=== PATIENT | male | born 1970 | race Hispanic/Latino ===

== ENCOUNTER 2019-12-13 18:21 | Inpatient (IN) | payer OTHER ==
[2019-12-13] MEDS ORDERED: PROMETHAZINE INJ 25 MG/ML AMP ONE (18:32)
[2019-12-13] MEDS ORDERED: NA CHLORIDE 0.9% 1,000 ML ONE (18:33)
[2019-12-13] MEDS ORDERED: MORPHINE 4 MG/ML SYR ONE ×3 (18:33→22:32)
[2019-12-13 18:38] LABS: Absolute Lymphocytes (CBC) 5.5 K/uL (0.7-4.9); Basophils % 0.8 % (0-1.3); Hematocrit 48.3 % (39.6-49.0); Lymphocytes % 31.3 % (15.3-44.8); MPV 7.8 fL (7.6-11.3); RBC Red Blood Cell Count 5.72 M/uL (4.33-5.43)
[2019-12-13 18:39] LABS: Protime INR 1.09
--- NOTE | 2019-12-13 19:07 | RAD REPORT ---
EXAM DESCRIPTION: RAD - Chest Single View - 12/13/2019 6:54 pm CLINICAL HISTORY: abd pain;Chest pain COMPARISON: None TECHNIQUE: AP portable chest image was obtained 12/13/2019 6:54 pm . FINDINGS: Exam is extremely limited. Very large body habitus, portable imaging and very shallow insp iration significantly limit assessment. No focal consolidation confirmed. Central vasculature and malathi g markings do appear prominent. Retrocardiac left base assessment is very limited. The failure/volume overload are not excluded. Heart and vasculature are normal. No measurable pleural effusion and no pneumothorax. No acute bony abnormality seen. No acute aortic findings suspected. IMPRESSION: Exam is extremely limited. No peripheral mass or consolidation confirmed. A mild failure or volume overload process cannot be excluded.
[2019-12-13 19:23] LABS: ALT/SGPT 35 U/L (12-78); AST/SGOT 24 U/L (15-37); Albumin 3.7 g/dL (3.4-5.0); Alkaline Phosphatase 133 U/L (45-117); BUN Blood Urea Nitrogen 18 mg/dL (7-18); Bicarbonate 26 mmol/L (21-32); Bilirubin Direct 0.3 mg/dL (0-0.2); Bilirubin Total 0.9 mg/dL (0.2-1.0); Glucose Level 303 mg/dL (74-106); Magnesium 2.2 mg/dL (1.8-2.4); NT PRO-BNP 112 pg/mL (<125); Protein, Total 8.5 g/dL (6.4-8.2); Sodium Level 137 mmol/L (136-145); Troponin (Emerg Dept Use Only) < 0.02 ng/mL (0.0-0.045)
[2019-12-13 19:27] LABS: Potassium 2.8 mmol/L (3.5-5.1)
--- NOTE | 2019-12-13 20:16 | RAD REPORT ---
EXAM DESCRIPTION: CT - Angio Aorta For Dissection - 12/13/2019 8:05 pm CLINICAL HISTORY: PAIN, abdominal pain, epigastric pain radiating to the back, hypertension COMPARISON: Limited portable chest December 12 TECHNIQUE: Dynamically enhanced 3 mm thick images of the chest, abdomen, and upper pelvis were obtai fredy during administration of approximately 150mL Isovue 370 IV contrast. Sagittal and coronal reconst ruction images were generated using MIP and reviewed. Exam utilizes a protocol to evaluate entire cou rse of the aorta. All CT scans are performed using dose optimization technique as appropriate and may include automated exposure control or mA/KV adjustment according to patient size. FINDINGS: Aorta is normal in diameter with no dissection or other acute aortic findings. Reconstruct ion images show no significant findings. Pulmonary arteries are normal as well. No cardiomegaly, pericardial thickening or pericardial effusio n. No mass or infiltrate in the lung parenchyma. No pleural thickening, pleural effusion or pneumothorax . No abnormal mediastinal or hilar mass or lymphadenopathy seen. No chest wall mass or abnormal axillar y lymphadenopathy. No endobronchial lesion or bronchial wall thickening you have you have been. Celiac, SMA and renal arteries show no suspicious findings. No focal lesion of the liver. No splenic abnormality. No pancreatic or peripancreatic abnormality identifiable. Cholelithiasis is evident. Gallbladder wall appears slightly thickened and enhances slightly. No bili sher tree dilatation. Correlation is needed with any acute cholecystitis findings. There is stranding in the fat adjacent to the fundus of the gallbladder. Small amount of free fluid is adjacent to the a nterolateral liver. Renal function is symmetric. No acute renal finding. No adrenal abnormalities. No acute bowel finding . No mass or abnormal lymphadenopathy. No free air, pneumatosis or other areas of inflammatory stran ding. No urinary bladder abnormality. IMPRESSION: Negative CT scan of the aorta for acute or significant finding. Abnormal gallbladder with findings suggesting acute cholecystitis. Correlation is needed with clinica l presentation. No biliary tree dilatation. No other significant findings on chest, abdomen and upper pelvis examination.
--- NOTE | 2019-12-13 20:53 | ER ---
Nurse's Notes [facility] Name: Yung Camara Age: 49 yrs Sex: Male : 1970 Arrival Date: 12/13/2019 Time: 18:18 Bed 26 Private MD: Diagnosis: Cholecystitis;Hypokalemia Presentation: 12/12 18:19 Chief complaint: EMS states: EPIGASTRIC PAIN RADIATING TO BACK. Coronavirus screen: bp Patient denies fever greater than 100.4F, cough, shortness of breath, or difficulty breathing. Proceed with normal triage process. Ebola Screen: No symptoms or risks identified at this time. Initial Sepsis Screen: Does the patient meet any 2 criteria? No. Patient's initial sepsis screen is negative. Does the patient have a suspected source of infection? No. Patient's initial sepsis screen is negative. Risk Assessment: Do you want to hurt yourself or someone else? Patient reports no desire to harm self or others. 18:19 Method Of Arrival: EMS: [facility] bp 18:19 Acuity: ANNALEE 3 bp Triage Assessment: 18:21 General: Appears distressed, uncomfortable, PALE, DIAPHORETIC. Behavior is cooperative, bp appropriate for age, agitated, anxious. Pain: Complains of pain in epigastric area Pain radiates to back. EENT: No deficits noted. Neuro: No deficits noted. Cardiovascular: Rhythm is sinus rhythm. Respiratory: Airway is patent Respiratory effort is even, unlabored, Respiratory pattern is regular, symmetrical. GI: Abdomen is non-distended, obese, Abd is soft X 4 quads Reports epigastric pain. : No signs and/or symptoms were reported regarding the genitourinary system. Derm: Skin is diaphoretic, Skin is pale. Musculoskeletal: No deficits noted. Historical: - Allergies: 18:21 No Known Allergies; bp - Home Meds: 18:21 Unable to obtain [Active]; bp - PMHx: 18:21 Hypertension; GALLSTONES; bp - Immunization history:: Adult Immunizations unknown. - Social history:: Smoking status: unknown. Screenin:24 Abuse screen: Denies threats or abuse. Denies injuries from another. Nutritional bp screening: No deficits noted. Tuberculosis screening: No symptoms or risk factors identified. Fall Risk None identified. Assessment: 18:24 General: SEE TRIAGE NOTE. bp Vital Signs: 18:19 BP 165 / 78; Pulse 83; Resp 16; Temp 98.1; Pulse Ox 98% ; Weight 136.08 kg; Height 5 bp ft. 10 in. (177.80 cm); 19:32 BP 229 / 122; Pulse 75; Resp 20; Temp 98.2(O); Pulse Ox 99% on R/A; Pain 7/10; ls4 21:11 BP 196 / 94; Pulse 96; Resp 14; Pulse Ox 99% on R/A; Pain 6/10; ls4 22:36 BP 186 / 113; Pulse 103; Resp 20; Temp 98.1(O); Pulse Ox 95% on R/A; Pain 7/10; ls4 23:05 BP 188 / 106; Pulse 116; Resp 20; Temp 100.4(O); Pulse Ox 97% on R/A; Pain 6/10; ls4 18:19 Body Mass Index 43.05 (136.08 kg, 177.80 cm) bp 19:32 Angie Hughes ORACLE FUSION MIDDLEWARE ARCHITECT aware of BP. continue to monitor ls4 23:05 Angie hughes ORACLE FUSION MIDDLEWARE ARCHITECT notified. 1 gram tylenol given po Salome [facility] 2nd floor MS updated, ls4 Leonidas and Angie Hughes aware of blood pressures. ED Course: 18:18 Patient arrived in ED. bp 18:20 Angie Arcos FNP-C is PHCP. snw 18:20 Jayy Amador MD is Attending Physician. snw 18:21 Triage completed. bp 18:21 Arm band placed on. bp 18:24 Patient has correct armband on for positive identification. Placed in gown. Bed in low bp position. Call light in reach. Side rails up X2. 18:24 Inserted saline lock: 18 gauge in right antecubital area, using aseptic technique. bp Blood collected. 18:24 No provider procedures requiring assistance completed. Initial lab(s) drawn, by ED ls4 staff, sent to lab. EKG done, by ED staff, reviewed by Jayy Amador MD. 18:24 Patient maintains SpO2 saturation greater than 95% on room air. ls4 18:26 Selma Higuera, ADAM is Primary Nurse. ls4 18:28 Radiology exam delayed due to lab results not completed at this time. (BUN/Creatinine). vm2 18:54 XRAY Chest (1 view) In Process Unspecified. EDMS 20:06 Angio Aorta For Dissection In Process Unspecified. EDMS 20:52 Todd Cho MD is Hospitalizing Provider. snw 23:10 Patient admitted, IV remains in place. ls4 23:37 Primary Nurse role handed off by Selma Higuera RN ls4 23:37 Selma Higuera RN is Primary Nurse. ls4 Administered Medications: 18:30 Drug: NS 0.9% 1000 ml Route: IV; Rate: 125 ml/hr; Site: right antecubital; ls4 18:30 Drug: morphine 4 mg Route: IVP; Site: right antecubital; ls4 19:01 Follow up: Response: No adverse reaction; Marked relief of symptoms ls4 18:30 Drug: Phenergan 6.25 mg Route: IVP; Site: right antecubital; ls4 19:01 Follow up: Response: No adverse reaction; Marked relief of symptoms ls4 21:01 Drug: Mefoxin 1 grams Route: IVPB; Infused Over: 30 mins; Site: right antecubital; ls4 21:01 Drug: Potassium Chloride 20 mEq Route: IV; Rate: calculated rate; Site: right ls4 antecubital; 23:01 Follow up: IV Status: Completed infusion; IV Intake: 100ml ls4 22:35 Drug: morphine 4 mg Route: IVP; Site: right antecubital; ls4 23:04 Follow up: Response: No adverse reaction; Marked relief of symptoms ls4 23:10 Drug: Tylenol 1000 mg Route: PO; ls4 Intake: 23:01 IV: 100ml; Total: 100ml. ls4 Outcome: 20:52 Decision to Hospitalize by Provider. snw 22:38 Admitted to Med/surg room 206, Report called to Salome MEDINA ls4 22:38 Condition: stable 22:38 Instructed on the need for admit. 23:10 Admitted to Med/surg accompanied by tech, via wheelchair. ls4 23:10 Patient left the ED. ls4 Signatures: Dispatcher [employer] EDMS Angie Arcos, CANDY VENDOR-C CANDY VENDOR-Csnw Coby Lauren 2 Jose Blake RN RN bp Selma Higuera RN RN ls4 Corrections: (The following items were deleted from the chart) 23:35 19:32 BP 229 / 122; Pulse 75bpm; Resp 20bpm; Pulse Ox 99% RA; Temp 98.2F Oral; Pain ls4 7/10; ls4 23:35 23:05 BP 188 / 106; Pulse 116bpm; Resp 20bpm; Pulse Ox 97% RA; Temp 100.4F Oral; Pain ls4 6/10; Angie hughes ORACLE FUSION MIDDLEWARE ARCHITECT notified. 1 gram tylenol given po Salome MEDINA 2nd floor MS updated ; ls4 23:39 23:35 Patient left the ED. ls4 ls4 23:39 23:38 Patient left the ED. ls4 ls4
--- NOTE | 2019-12-13 20:53 | EDPHYS ---
Physician Documentation [facility] Name: Yung Camara Age: 49 yrs Sex: Male : 1970 Arrival Date: 12/13/2019 Time: 18:18 Bed 26 Private MD: ED Physician Jayy Amador HPI: 12/12 18:37 This 49 yrs old Male presents to ER via EMS with complaints of Epigastric Pain.snw 18:37 The patient presents with abdominal pain in the epigastric area, in the upper abdomen. snw Onset: The symptoms/episode began/occurred suddenly, and became persistent. The symptoms radiate to back. Associated signs and symptoms: Pertinent positives: nausea. The symptoms are described as crampy. Severity of pain: At its worst the pain was severe. The patient has not experienced similar symptoms in the past. It is unknown whether or not the patient has recently seen a physician. + hx of gallstones. Historical: - Allergies: 18:21 No Known Allergies; bp - Home Meds: 18:21 Unable to obtain [Active]; bp - PMHx: 18:21 Hypertension; GALLSTONES; bp - Immunization history:: Adult Immunizations unknown. - Social history:: Smoking status: unknown. ROS: 18:37 Constitutional: Negative for fever, chills, and weight loss, Eyes: Negative for injury, snw pain, redness, and discharge, ENT: Negative for injury, pain, and discharge, Neck: Negative for injury, pain, and swelling, Cardiovascular: Negative for chest pain, palpitations, and edema, Respiratory: Negative for shortness of breath, cough, wheezing, and pleuritic chest pain, Back: Negative for injury and pain, : Negative for injury, bleeding, discharge, and swelling, MS/Extremity: Negative for injury and deformity, Skin: Negative for injury, rash, and discoloration, Neuro: Negative for headache, weakness, numbness, tingling, and seizure. 18:37 Abdomen/GI: Positive for abdominal pain, abdominal cramps, of the epigastric area. Exam: 18:35 Head/Face: Normocephalic, atraumatic. Eyes: Pupils equal round and reactive to light, snw extra-ocular motions intact. Lids and lashes normal. Conjunctiva and sclera are non-icteric and not injected. Cornea within normal limits. Periorbital areas with no swelling, redness, or edema. ENT: Nares patent. No nasal discharge, no septal abnormalities noted. Tympanic membranes are normal and external auditory canals are clear. Oropharynx with no redness, swelling, or masses, exudates, or evidence of obstruction, uvula midline. Mucous membranes moist. Neck: Trachea midline, no thyromegaly or masses palpated, and no cervical lymphadenopathy. Supple, full range of motion without nuchal rigidity, or vertebral point tenderness. No Meningismus. Chest/axilla: Normal chest wall appearance and motion. Nontender with no deformity. No lesions are appreciated. Cardiovascular: Regular rate and rhythm with a normal S1 and S2. No gallops, murmurs, or rubs. Normal PMI, no JVD. No pulse deficits. Respiratory: Lungs have equal breath sounds bilaterally, clear to auscultation and percussion. No rales, rhonchi or wheezes noted. No increased work of breathing, no retractions or nasal flaring. 18:35 Back: No spinal tenderness. No costovertebral tenderness. Full range of motion. Skin: Warm, diaphoretic with normal turgor. Pale color with no rashes, no lesions, and no evidence of cellulitis. MS/ Extremity: Pulses equal, no cyanosis. Neurovascular intact. Full, normal range of motion. Neuro: Awake and alert, GCS 15, oriented to person, place, time, and situation. Cranial nerves II-XII grossly intact. Motor strength 5/5 in all extremities. Sensory grossly intact. Cerebellar exam normal. Normal gait. Psych: Awake, alert, with orientation to person, place and time. Behavior, mood, and affect are within normal limits. 18:35 Constitutional: The patient appears awake, diaphoretic, obese, pale, restless, uncomfortable. 18:35 Abdomen/GI: Inspection: abdomen appears normal, obese Bowel sounds: normal, Palpation: moderate abdominal tenderness, in the epigastric area. Vital Signs: 18:19 BP 165 / 78; Pulse 83; Resp 16; Temp 98.1; Pulse Ox 98% ; Weight 136.08 kg; Height 5 bp ft. 10 in. (177.80 cm); 19:32 BP 229 / 122; Pulse 75; Resp 20; Temp 98.2(O); Pulse Ox 99% on R/A; Pain 7/10; ls4 21:11 BP 196 / 94; Pulse 96; Resp 14; Pulse Ox 99% on R/A; Pain 6/10; ls4 22:36 BP 186 / 113; Pulse 103; Resp 20; Temp 98.1(O); Pulse Ox 95% on R/A; Pain 7/10; ls4 23:05 BP 188 / 106; Pulse 116; Resp 20; Temp 100.4(O); Pulse Ox 97% on R/A; Pain 6/10; ls4 18:19 Body Mass Index 43.05 (136.08 kg, 177.80 cm) bp 19:32 Angie Hughes SUSTAINABILITY PROJECT MANAGER aware of BP. continue to monitor ls4 23:05 Angie hughes SUSTAINABILITY PROJECT MANAGER notified. 1 gram tylenol given po Salome [facility] 2nd floor MS updated, Dr galo Lauren and Angie Hughes aware of blood pressures. MDM: 18:24 Patient medically screened. snw 20:48 Data reviewed: vital signs, nurses notes. Data interpreted: Pulse oximetry: on room air snw is 98 %. Interpretation: normal. Counseling: I had a detailed discussion with the patient and/or guardian regarding: the historical points, exam findings, and any diagnostic results supporting the discharge/admit diagnosis, lab results, radiology results, the need for further work-up and treatment in the hospital. Physician consultation: Todd Cho MD was called at 20:49, was contacted at 20:49, regarding admission, to the medical/surgical unit. patient's condition. 12/12 18:23 Order name: Basic Metabolic Panel; Complete Time: 19:29 snw 12/12 18:23 Order name: CBC with Diff; Complete Time: 18:58 snw 12/12 18:23 Order name: LFT's; Complete Time: 19:29 snw 12/12 18:23 Order name: Magnesium; Complete Time: 19:29 snw 12/12 18:23 Order name: NT PRO-BNP; Complete Time: 19:29 snw 12/12 18:23 Order name: PT-INR; Complete Time: 18:58 snw 12/12 18:23 Order name: Troponin (emerg Dept Use Only); Complete Time: 19:29 snw 12/12 18:23 Order name: XRAY Chest (1 view); Complete Time: 19:29 snw 12/12 18:45 Order name: Angio Aorta For Dissection; Complete Time: 20:31 EDMS 12/12 18:23 Order name: EKG; Complete Time: 18:24 snw 12/12 18:23 Order name: Cardiac monitoring; Complete Time: 18:32 snw 12/12 18:23 Order name: EKG - Nurse/Tech; Complete Time: 18:32 snw 12/12 18:23 Order name: IV Saline Lock; Complete Time: 18:32 snw 12/12 18:23 Order name: Labs collected and sent; Complete Time: 18:31 snw 12/12 18:23 Order name: O2 Per Protocol; Complete Time: 18:31 snw 12/12 18:23 Order name: O2 Sat Monitoring; Complete Time: 18:31 snw 12/12 20:51 Order name: NPO; Complete Time: 21:23 snw Administered Medications: 18:30 Drug: NS 0.9% 1000 ml Route: IV; Rate: 125 ml/hr; Site: right antecubital; ls4 18:30 Drug: morphine 4 mg Route: IVP; Site: right antecubital; ls4 19:01 Follow up: Response: No adverse reaction; Marked relief of symptoms ls4 18:30 Drug: Phenergan 6.25 mg Route: IVP; Site: right antecubital; ls4 19:01 Follow up: Response: No adverse reaction; Marked relief of symptoms ls4 21:01 Drug: Mefoxin 1 grams Route: IVPB; Infused Over: 30 mins; Site: right antecubital; ls4 21:01 Drug: Potassium Chloride 20 mEq Route: IV; Rate: calculated rate; Site: right ls4 antecubital; 23:01 Follow up: IV Status: Completed infusion; IV Intake: 100ml ls4 22:35 Drug: morphine 4 mg Route: IVP; Site: right antecubital; ls4 23:04 Follow up: Response: No adverse reaction; Marked relief of symptoms ls4 23:10 Drug: Tylenol 1000 mg Route: PO; ls4 Disposition: 12/13/19 20:52 Hospitalization ordered by Todd Cho for Inpatient Admission. Preliminary diagnosis are Cholecystitis, Hypokalemia. - Bed requested for Telemetry/MedSurg (Inpatient). - Status is Inpatient Admission. ls4 - Condition is Stable. - Problem is an acute exacerbation. - Symptoms are unchanged. Addendum: 12/15/2019 16:24 Co-signature as Attending Physician, Jayy Amador MD. m a2 Signatures: Dispatcher [employer] EDIL Paulette Ladd RN RN Angie Arcos, FURNITURE DELIVERY DRIVER-C FURNITURE DELIVERY DRIVER-Csnw Jose Blake, RN RN Jayy Amador MD MD wa2 Selma Higuera, ADAM RN ls4 Corrections: (The following items were deleted from the chart) 12/12 18:45 18:24 Dissection W/ Wo Con+CT.RAD.BRZ ordered. [facility] [place] EDIL 21:49 20:52 Hospitalization Ordered by Todd Cho MD for Inpatient Admission. Preliminary diagnosis is Cholecystitis; Hypokalemia. Bed requested for Telemetry/MedSurg (Inpatient). Status is Inpatient Admission. Condition is Stable. Problem is an acute exacerbation. Symptoms are unchanged. sn 23:35 21:49 12/13/2019 20:52 Hospitalization Ordered by Todd Cho MD for Inpatient ls4 Admission. Preliminary diagnosis is Cholecystitis; Hypokalemia. Bed requested for Telemetry/MedSurg (Inpatient). Status is Inpatient Admission. Condition is Stable. Problem is an acute exacerbation. Symptoms are unchanged. 23:38 23:35 12/13/2019 20:52 Hospitalization Ordered by Todd Cho MD for Inpatient ls4 Admission. Preliminary diagnosis is Cholecystitis; Hypokalemia. Bed requested for Telemetry/MedSurg (Inpatient). Status is Inpatient Admission. Condition is Stable. Problem is an acute exacerbation. Symptoms are unchanged. ls4
[2019-12-13] MEDS ORDERED: KCL 20 MEQ/100 mL IVPB 20 MEQ/100 ML BAG IV ONE (21:14)
[2019-12-13] MEDS ORDERED: CEFOXITIN/SWI 1gm 1 GM/10 ML SYR ONE (21:14)
[2019-12-13] MEDS ORDERED: ACETAMINOPHEN 500 MG TAB ONE (23:13)
[2019-12-13] MEDS ORDERED: MORPHINE 4 MG/ML SYR IV PRN (23:22)
[2019-12-13] MEDS ORDERED: PROMETHAZINE INJ 25 MG/ML AMP IV PRN (23:22)
[2019-12-13 23:39] VITALS: BMI 43.4
[2019-12-14] MEDS: NS KCL 20MEQ 20 MEQ/1,000 ML BAG IV SCH ×2 (00:20→09:22)
[2019-12-14] MEDS: CEFOXITIN SODIUM 1 GM/VIAL IVPB SCH ×2 (02:44→04:58)
[2019-12-14] MEDS ORDERED: CEFOXITIN SODIUM 1 GM/VIAL ONE (02:45)
[2019-12-14] MEDS ORDERED: NA CHLORIDE 0.9% 50 ML ONE (04:07)
[2019-12-14 04:35] LABS: Absolute Lymphocytes (CBC) 0.9 K/uL (0.7-4.9); Basophils % 0.2 % (0-1.3); Hematocrit 45.5 % (39.6-49.0); Lymphocytes % 5.2 % (15.3-44.8); MPV 7.8 fL (7.6-11.3); RBC Red Blood Cell Count 5.32 M/uL (4.33-5.43)
[2019-12-14 04:50] LABS: ALT/SGPT 35 U/L (12-78); AST/SGOT 19 U/L (15-37); Albumin 3.1 g/dL (3.4-5.0); Alkaline Phosphatase 135 U/L (45-117); BUN Blood Urea Nitrogen 14 mg/dL (7-18); Bicarbonate 27 mmol/L (21-32); Bilirubin Direct 0.3 mg/dL (0-0.2); Bilirubin Total 0.8 mg/dL (0.2-1.0); Glucose Level 276 mg/dL (74-106); Lipase 42 U/L (73-393); Potassium 3.9 mmol/L (3.5-5.1); Protein, Total 7.7 g/dL (6.4-8.2); Sodium Level 140 mmol/L (136-145)
[2019-12-14] MEDS ORDERED: MIDAZOLAM HCL 2 MG/2 ML INJ ONE (07:15)
[2019-12-14] MEDS ORDERED: FENTANYL CITR 100 MCG/2 ML ONE ×2 (07:15→08:14)
[2019-12-14] MEDS ORDERED: propofoL 200 MG/20 ML VIAL IV ONE (07:15)
[2019-12-14] MEDS ORDERED: ROCURONIUM 50 MG/5 ML VIAL IV ONE (07:15)
[2019-12-14] MEDS ORDERED: dexAMETHasone 10 MG/ML VIAL ONE (07:15)
[2019-12-14] MEDS ORDERED: LIDOCAINE 1% MPF 5 ML VIAL ONE (07:15)
[2019-12-14] MEDS ORDERED: ONDANSETRON 4 MG/2 ML VIAL ONE (07:16)
[2019-12-14] MEDS ORDERED: KETOROLAC 30 MG/ML INJ ONE (07:16)
[2019-12-14] MEDS ORDERED: Ringers Lactate 1,000 ML IV ONE (07:40)
--- NOTE | 2019-12-14 07:48 | P.HP ---
Date of Service: 12/14/19
--- NOTE | 2019-12-14 07:59 | P.HP ---
Date of Service: 12/14/19 PC: This 49-year-old male presents emergency room with severe upper abdominal pain for diagnosis and treatment. HPC: Patient been experiencing severe upper abdominal pain, radiating into his back, for the last 2 hr before he came to the ER. Was told in the past any any history of gallbladder disease. He had been trying to control this with diet. PMH: Diabetes, hypertension, morbid obesity PSHx: Negative SOC: No known allergies SYS REVIEW: No cough, wheeze, shortness of breath. No chest pain or palpitations. Has not been running a temp injure fevers at home. No change in bowel habit. Denies any urinary complaints O/E awake alert very uncomfortable HEENT: Not jaundiced Chest: Chest movement equal bilaterally ABD: Tender with mild guarding in the right upper quadrant LOCO: Intact DATA: Elevated white cell count, CT scan highly suspicious for cholecystitis. White cell count still elevated this morning despite being on antibiotics and receiving IV fluids. IMPRESSION: Acute cholecystitis PLAN: I will take him to the operating room for laparoscopic cholecystectomy possible open with cholangiogram. The risks of this procedure have been discussed. The possibility of bleeding, infection, injury to bile ducts blood vessels and intestines has been explained. The possible need for an open and/ or further surgeries and procedures was discussed. He understands and wants us to proceed.
[2019-12-14] MEDS ORDERED: LANO/MINERAL OIL/PETRO 3.5 GM ONE (08:11)
[2019-12-14 08:27] LABS: Blood Morphology Comment NOT SEEN (NOT SEEN); Platelet Estimate ADEQ
[2019-12-14] MEDS ORDERED: GLYCOPYRROLATE 0.2 MG/ML SYR ONE (08:28)
[2019-12-14] MEDS ORDERED: NEOSTIGMINE 1 MG/ML -5 ML ONE (08:28)
[2019-12-14] MEDS ORDERED: Phenylephrine HCl 10 MG/ML 1 ML VIAL ONE (08:52)
[2019-12-14] MEDS ORDERED: NS 0.9% VIAL 10 ML ONE (08:52)
--- NOTE | 2019-12-14 09:20 | RAD REPORT ---
EXAM DESCRIPTION: RAD - Cholangiogram Oper-Xray Or - 12/14/2019 9:07 am CLINICAL HISTORY: LAP SAIMA WITH IOC IN OR 2 COMPARISON: Angio Aorta For Dissection dated 12/13/2019 FINDINGS: Cystic duct injection was performed by operating surgeon. Common bile duct appears normal in caliber. No evidence of a common bile duct retained stone. Total fluoro time: 0.3 minutes IMPRESSION: No evidence of retained common duct stone.
--- NOTE | 2019-12-14 09:53 | P.OP ---
Preoperative diagnosis: Cholecystitis with cholelithiasis Postoperative diagnosis: Gangrene of the gallbladder with perforation Primary procedure: Laparoscopic cholecystectomy Secondary procedure: Cholangiogram Anesthesia: General Estimated blood loss: Less than 30 cc Specimen: 1 specimen of gallbladder and contents Operative Technique: The patient brought the operating room and placed supine on the table. After the induction of adequate general endotracheal anesthesia, the area of the abdomen was prepped with a DuraPrep solution, and he was draped in usual aseptic manner. Subumbilical incision was made. This brought down through the skin and subcutaneous tissue. The Visiport was now used to enter the peritoneal cavity and created pneumoperitoneum to approximately 12 mm of mercury. The patient was placed in reverse Trendelenburg and rolled to the left. We could visualize the right upper quadrant. We could see an intense inflammatory process with the omentum adherent to the inferior edge of the gallbladder leg up on top of the right lobe of the liver. Just lateral to this was freed bowel noted in the peritoneal cavity. This area was gently irrigated and aspirated. A 5 mm trocar had been placed in the upper midline. 2 other should now placed on the right lateral side of the abdomen. We were able to gently dissect this omentum off of the gallbladder. The gallbladder was finally isolated. We could see at the fundus that there was a free perforation was leakage of old bile that was thick containing small stone fragments. This was aspirated food and contained by recent Re placing the grasper in a more stitch EGD position. Gentle traction was now applied down by Shruthi's pouch. We were finally able to isolate out the cystic duct and cystic artery. These were clipped in the usual manner. An opening was found made into the cystic duct through which we obtained essentially a normal intraoperative cholangiogram. The catheter was able to be paid is down into the true duodenum. The catheter was removed. The gallbladder was now dissected free from the liver bed. It was noted markedly thickened and adherent to the gallbladder. We finally detached it completely from the liver it was placed into an Endo-Catch and brought out through the umbilical trocar site. It was necessary to elongate the umbilical incision in order to pull specimen out. At this point the operative site was inspected. There was an be just some mild amount of oozing coming from the liver bed. This was irrigated extensively. We left a 10 mm drain and on Morison's pouch and brought out through the most lateral trocar. Attention was turned back towards the emboli kiss. 2 sutures were placed using the Endo Close to approximate the facile defect. The pneumoperitoneum was now collapsed, the patient returned to unusual position, and the sutures tied. Hanna were then applied to the skin. The drain was secured using absorbable suture. At the end of the procedure he was in a stable condition when sent to the recovery room. Needle sponge instrument count were correct. 1 LESLYE drain has been placed. Complications: None Drain(s): LESLYE drain Transferred to: Recovery Room Condition: Good
[2019-12-14] MEDS ORDERED: MORPHINE 4 MG/ML SYR IV PRN (09:57)
[2019-12-14] MEDS ORDERED: HYDROCODONE/APAP 7.5/325 MG TAB PO PRN (09:57)
[2019-12-14] MEDS ORDERED: ONDANSETRON 4 MG/2 ML VIAL IV PRN (09:57)
[2019-12-14] MEDS ORDERED: GLUCAGON 1 MG/VIAL IM PRN (12:07)
[2019-12-14] MEDS ORDERED: D50W 25 GM/50 ML SYRINGE/VIAL IV PRN (12:07)
[2019-12-14] MEDS: CEFOXITIN/SWI 1gm 1 GM/10 ML SYR IV SCH ×2 (12:31→17:41)
--- NOTE | 2019-12-14 13:31 | P.CNS ---
Date of Consult: 12/14/19 Reason for Consult: Medical management Requesting Physician: Todd Cho Primary Care Provider: Dr. Omid Beaver Chief Complaint: Right upper quadrant ab. pain History of Present Illness: 49-year-old male with history of pre diabetes and hypertension presented to the emergency room with right upper quadrant abdominal pain Patient seen and evaluated by surgery. Patient found to have acute cholecystitis. Patient was admitted and had surgical intervention. Patient was found to have gangrene of the gallbladder with perforation. Laparoscopic cholecystectomy noted. Patient is doing well this time. Surgery consulted me for medical management as blood sugars were elevated upon admission and blood pressure elevated as well. If patient reports a history of pre diabetes. He he was close the follow up with his PCP here soon. He mentions a history of hypertension previously on medication but no longer takes medication at this time. Patient currently stable this time. He is postop laparoscopic cholecystectomy with intraoperative cholangiogram. He appears stable this time. No significant nausea or vomiting noted. Labs reviewed. Allergies No Known Allergies Allergy (Unverified 12/13/19 22:21) Home medications list reviewed: Yes Home Medications: NK [No Home Meds] 12/14/19 - Past Medical/Surgical History Diabetic: No -: Hypertension -: Pre diabetes -: Obesity, BMI 43.5 Past Surgical History: Patient denies surgical history Psychosocial/ Personal History: Patient lives at home. - Family History Father Notes: healthy Mother Medical History: Hypertension, Diabetes - Social History Smoking Status: Never smoker Alcohol use: Yes CD- Drugs: No Caffeine use: Yes Place of Residence: Home Review of Systems General: As per HPI Eyes: Unremarkable ENT: Unremarkable Respiratory: Unremarkable Cardiovascular: Unremarkable Gastrointestinal: Abdominal Pain, As per HPI Genitourinary: Unremarkable Musculoskeletal: Unremarkable Integumentary: Unremarkable Neurological: Unremarkable Lymphatics: Unremarkable Physical Examination Temp Pulse Resp BP Pulse Ox 97.5 F 84 16 142/79 H 93 12/14/19 10:12/14/19 10:12/14/19 10:12/14/19 10:12/14/19 07:00 General: Alert, In no apparent distress, Oriented x3, Cooperative HEENT: Atraumatic, Normocephalic, Mucous membr. moist/pink Neck: Supple, No Thyromegaly Respiratory: Clear to auscultation bilaterally, Normal air movement Cardiovascular: Normal pulses, Regular rate/rhythm Gastrointestinal: Other (Postop changes noted. Drain in place with serosanguineous fluid noted.) Musculoskeletal: No erythema, No tenderness, No warmth Integumentary: No tenderness/swelling, No erythema, No warmth, No cyanosis Neurological: Normal speech, Normal strength at 5/5 x4 extr, Normal tone, Normal affect Laboratory Data (last 24 hrs) 12/13/19 18:30: PT 12.8 H, INR 1.09 12/13/19 18:30: WBC 17.6 H, Hgb 16.3, Hct 48.3, Plt Count 431 H 12/13/19 18:30: Sodium 137, Potassium 2.8 L*, BUN 18, Creatinine 1.02, Glucose 303 H, Magnesium 2.2, Total Bilirubin 0.9, AST 24, ALT 35, Alkaline Phosphatase 133 H Conclusions/Impression: Impression: Right upper quadrant abdominal pain secondary to gangrenous cholecystitis with perforation status post laparoscopic cholecystectomy and intraoperative cholangiogram Elevated blood sugar suspect diabetes mellitus type 2 Hypertension Obesity, BMI 43.5. Plan: Right upper quadrant abdominal pain secondary to gangrenous cholecystitis with perforation status post laparoscopic cholecystectomy and intraoperative cholangiogram: Patient status post surgery. Patient doing well this time. Surgery plans to advance diet. Encourage incentive spirometer. Drain in place. Will monitor closely. Encourage ambulation. Anticipate discharge likely tomorrow if okay with surgery. Elevated blood sugar suspect diabetes mellitus type 2: Consult made by Surgery for medical management. Will obtain A1c. Will start with a insulin sliding scale with monitoring of Accu-Cheks. Patient will likely require medication at discharge. Await A1c to determine what the patient will need. Hypertension: Will start lisinopril. Patient had use medication in the past but no longer was taking. Education and compliance will be addressed in detail. Obesity, BMI 43.5: Lifestyle modification education will be provided. Time Spent Managing Pts care (In Minutes): 55
[2019-12-14 14:37] LABS: Potassium 4.4 mmol/L (3.5-5.1)
[2019-12-14] MEDS: INSULIN -REGULAR HUMAN 50 UNIT/0.5 ML ML SQ SCH ×2 (15:09→20:55)
--- NOTE | 2019-12-14 15:29 | EKG ---
Test Date: 2019-12-13 Test Time: 18:24:22 Print Binding Worker: WOLF MEASUREMENT RESULTS: Intervals: Rate: 74 ND: 154 QRSD: 108 QT: 448 QTc: 497 [place]: P: 68 ND: 154 QRS: 12 T: 88 INTERPRETIVE STATEMENTS: Sinus rhythm with marked sinus arrhythmia Possible Left atrial enlargement Nonspecific ST and T wave abnormality Prolonged QT Abnormal ECG No previous ECG available for comparison Electronically Signed On 12-14-19 15:28:10 CDT by Shoaib Steen
[2019-12-14] MEDS ORDERED: lisinopriL 10 MG TAB PO SCH (21:00)
[2019-12-14 21:12] VITALS: O2SAT 98
[2019-12-15] MEDS: CEFOXITIN/SWI 1gm 1 GM/10 ML SYR IV SCH ×4 (00:35→12:34)
[2019-12-15 04:52] LABS: BUN Blood Urea Nitrogen 19 mg/dL (7-18); Bicarbonate 29 mmol/L (21-32); Glucose Level 215 mg/dL (74-106); HDL Cholesterol 42 mg/dL (40-60); LDL Cholesterol, Calculated 106 (<130); Sodium Level 138 mmol/L (136-145); Thyroid Stimulating Hormone 0.235 uIU/mL (0.360-3.740)
--- NOTE | 2019-12-15 07:02 | P.PN ---
Subjective Date of Service: 12/15/19 Primary Care Provider: Dr. Omid Beaver Chief Complaint: Right upper quadrant ab. pain Review of Systems General: Unremarkable Eyes: Unremarkable ENT: Unremarkable Respiratory: Unremarkable Cardiovascular: Unremarkable Gastrointestinal: As per HPI Genitourinary: Unremarkable Musculoskeletal: Unremarkable Integumentary: Unremarkable Neurological: Unremarkable Lymphatics: Unremarkable Physical Examination - Vital Signs Temperature: 98.8 F Blood Pressure: 133/76 Pulse: 66 Respirations: 18 Pulse Ox (%): 96 - Physical Exam General: Alert, In no apparent distress, Oriented x3 HEENT: Atraumatic, Normocephalic Neck: Supple Respiratory: Clear to auscultation bilaterally, Normal air movement Cardiovascular: No edema, Normal S1 S2 Gastrointestinal: Normal bowel sounds, Soft and benign (Surgical dressings in place, drain in place and draining small amount.) Musculoskeletal: No erythema, No tenderness, No warmth Integumentary: No rashes Neurological: Normal speech, Normal strength at 5/5 x4 extr, Normal tone Lymphatics: No axilla or inguinal lymphadenopathy Assessment & Plan Discharge Plan: Home Plan to discharge in: 24 Hours - Code Status/Comfort Care Code Status Assessed: Yes (full code) Physician Review Additional Text: Impression: Right upper quadrant abdominal pain secondary to gangrenous cholecystitis with perforation status post laparoscopic cholecystectomy and intraoperative cholangiogram Elevated blood sugar suspect diabetes mellitus type 2 Hypertension Subclinical Hyperthyroidism Obesity, BMI 43.5. Plan: Right upper quadrant abdominal pain secondary to gangrenous cholecystitis with perforation status post laparoscopic cholecystectomy and intraoperative cholangiogram: Patient status post surgery. Patient doing well this time. Patient tolerating diet well. Pain is under control. Encourage incentive spirometer. Drain remains in place. Will monitor closely. Encourage ambulation. Anticipate discharge likely today if okay by surgery. The patient is medically stable for discharge at this time. Elevated blood sugar suspect diabetes mellitus type 2: A1c elevated at 8.7. Patient educated on required dietary changes and will receive a new prescription for metformin which will be started at 500 mg twice daily and increase to 1000 mg twice daily in 1 week patient instructed to follow up with primary care doctor Dr. Beaver for continuation and adjustment of his medications. Hypertension: Patient given lisinopril 10 mg yesterday and patient tolerated well blood pressure in the 130s over 80s. Patient will be discharged with new prescription for lisinopril 10 mg once daily and instructed to follow up with the primary care doctor. Subclinical Hyperthyroidism: Patient labs suggest subclinical hyperthyroidism. Patient denies any hot flashes, tachycardia, diarrhea, palpitations. Patient instructed to have repeat lab work with primary care physician who will further manage this condition. Obesity, BMI 43.5: Lifestyle modification education will be provided. Time Spent Managing Pts care (In Minutes): 55 Time Spent Managing Pts Care (In Minutes): 55
[2019-12-15] MEDS: INSULIN -REGULAR HUMAN 50 UNIT/0.5 ML ML SQ SCH ×2 (07:57→12:34)
[2019-12-15] MEDS ORDERED: ENOXAPARIN 30 MG/0.3 ML SQ SCH (09:00)
[2019-12-15 14:15] VITALS: BP 152/86; TEMP 97.6
== END 2019-12-15 13:37 | disposition home or self-care (01) | DRG 418 ==
LOC: ER 18:21 → 2ND 20:52
PROVIDERS: ADMIT Surgery; ATTEND Surgery
PROC: BF101ZZ Fluoroscopy of Bile Ducts using Low Osmolar Contrast (ICD-10-PCS; 2019-12-14)
PROC: 0FT44ZZ Resection of Gallbladder, Percutaneous Endoscopic Approach (ICD-10-PCS; principal; 2019-12-14 07:30)
DX: K81.0 Acute cholecystitis (principal); Z68.41 Body mass index [BMI] 40.0-44.9, adult; K82.A2 Perforation of gallbladder in cholecystitis; K82.A1 Gangrene of gallbladder in cholecystitis; E05.80 Other thyrotoxicosis without thyrotoxic crisis or storm; R73.9 Hyperglycemia, unspecified; E66.9 Obesity, unspecified; I10 Essential (primary) hypertension
CPT/HCPCS: 36415; 71045; 71275; 74175; 74300; 80048; 80061; 80076; 82947; 83036; 83690; 83735; 83880; 84439; 84443; 84484; 85025; 85610; 88304; 93005; 96365; 96366; 96375; 99285; J0694; J1100; J1650; J2250; J2370; J2405; J2550; J2704; J2710; J3010; J7030; J7120; Q9967

== ENCOUNTER 2021-06-26 16:18 | Emergency (ER) | payer OTHER ==
[2021-06-26] MEDS ORDERED: CASIRIVIMAB/IMDEVIMAB 10 ML VIAL ONE (17:11)
[2021-06-26] MEDS ORDERED: NA CHLORIDE 0.9% 250 ML ONE (17:12)
[2021-06-26] MEDS ORDERED: NA CHLORIDE 0.9% 50 ML ONE (17:12)
--- NOTE | 2021-06-26 17:48 | ER ---
Nurse's Notes [facility] Name: Yung Camara Age: 51 yrs Sex: Male : 1970 Arrival Date: 06/26/2021 Time: 16:20 Bed 12 Private MD: Diagnosis: Coronavirus infection, unspecified Presentation: 06/26 16:22 Chief complaint: Patient states: i was diagnosed with COVID on Thursday. but since i have tw2 DM and high blood pressure my doctor Perfecto Beaver told me to come get the infusion. i mainly just feel weak. Coronavirus screen: shortness of breath, Client presents with at least one sign or symptom that may indicate coronavirus-19. Standard/surgical mask placed on the client. Provider contacted for isolation considerations. Ebola Screen: Patient denies travel to an Ebola-affected area in the 21 days before illness onset. Onset of symptoms was June 26, 2021. 16:22 Method Of Arrival: Ambulatory tw2 16:22 Acuity: ANNALEE 4 tw2 16:39 Initial Sepsis Screen: Does the patient meet any 2 criteria? HR > 90 bpm. No. Patient's tw2 initial sepsis screen is negative. Does the patient have a suspected source of infection? No. Patient's initial sepsis screen is negative. Risk Assessment: Do you want to hurt yourself or someone else? Patient reports no desire to harm self or others. Triage Assessment: 16:26 General: Appears in no apparent distress. obese, Behavior is calm, cooperative, tw2 appropriate for age. Pain: Denies pain. Historical: - Allergies: 16:24 No Known Allergies; tw2 - Home Meds: 16:24 Ozempic inj [Active]; tw2 - PMHx: 16:24 GALLSTONES; Hypertension; Diabetes mellitus; tw2 - Immunization history:: Client reports having NOT received the Covid vaccine. - Social history:: Smoking status: Patient denies any tobacco usage or history of. Screenin:40 Abuse screen: Denies threats or abuse. Nutritional screening: No deficits noted. tw2 Tuberculosis screening: No symptoms or risk factors identified. Fall Risk None identified. Assessment: 16:41 General: Appears in no apparent distress. comfortable, Behavior is calm, cooperative, ld1 appropriate for age. Pain: Denies pain. Neuro: Level of Consciousness is awake, alert, obeys commands, Oriented to person, place, time, situation. Cardiovascular: Capillary refill < 3 seconds Patient's skin is warm and dry. Respiratory: Airway is patent Respiratory effort is even, unlabored, Respiratory pattern is regular, symmetrical. GI: Abdomen is round non-distended. : No signs and/or symptoms were reported regarding the genitourinary system. EENT: No signs and/or symptoms were reported regarding the EENT system. Derm: No signs and/or symptoms reported regarding the dermatologic system. Musculoskeletal: No signs and/or symptoms reported regarding the musculoskeletal system. Vital Signs: 16:26 BP 158 / 91; Pulse 93; Resp 19; Temp 99.6; Pulse Ox 97% on R/A; Pain 0/10; tw2 16:41 BP 113 / 82; Pulse 84; Resp 18; Pulse Ox 96% on R/A; ld1 16:26 pt states "i was just outside a while" tw2 ED Course: 16:20 Patient arrived in ED. ds1 16:24 Triage completed. tw2 16:24 Arm band placed on. tw2 16:26 Fei Gudino PA is PHCP. [facility] 16:26 Jassi Lombardi MD is Attending Physician. [facility] 16:33 Shawnee Camacho, ADAM is Primary Nurse. ld1 16:42 Patient has correct armband on for positive identification. Placed in gown. Bed in low ld1 position. Call light in reach. Side rails up X2. Pulse ox on. NIBP on. Door closed. Noise minimized. Warm blanket given. 16:42 No provider procedures requiring assistance completed. ld1 17:07 Inserted saline lock: 20 gauge in right antecubital area, using aseptic technique. ld1 18:23 IV discontinued, intact, bleeding controlled, No redness/swelling at site. ld1 Administered Medications: 17:07 Drug: Casirivimab-Imdevimab Dose Pack 120 mg/mL-120 mg/mL (EUA) 1 application Route: ld1 IV; Rate: calculated rate; Site: right antecubital; 18:13 Follow up: Response: No adverse reaction; IV Status: Completed infusion; IV Intake: ld1 250ml Intake: 18:13 IV: 250ml; Total: 250ml. ld1 Outcome: 17:47 Discharge ordered by MD. dorsey 18:23 Discharged to home ambulatory. ld1 18:23 Condition: stable 18:23 Discharge instructions given to patient, Instructed on discharge instructions, follow up and referral plans. Demonstrated understanding of instructions, follow-up care. 18:23 Patient left the ED. ld1 Signatures: Fei Gudino PA PA jmm Sanford, Demi ds1 Madeline Loera RN RN tw2 Shawnee Camacho RN RN ld1
--- NOTE | 2021-06-26 17:48 | EDPHYS ---
Physician Documentation [facility] Name: Yung Camara Age: 51 yrs Sex: Male : 1970 Arrival Date: 06/26/2021 Time: 16:20 Bed 12 Private MD: ED Physician Jassi Lombardi HPI: 06/26 17:15 This 51 yrs old Male presents to ER via Ambulatory with complaints of Covid +- jmm Antibody Infusion. 17:15 Onset: The symptoms/episode began/occurred gradually, 5 day(s) ago. Modifying factors: jmm The symptoms are alleviated by nothing. the symptoms are aggravated by nothing. Associated signs and symptoms:. This is a 51-year-old male with a history of hypertension or diabetes mellitus the presents emerged part with complaints of cough, congestion beginning 5 days ago. Patient tested positive for coronavirus. Advised by his PCP to get a Regeneron effusion.. Historical: - Allergies: 16:24 No Known Allergies; tw2 - Home Meds: 16:24 Ozempic inj [Active]; tw2 - PMHx: 16:24 GALLSTONES; Hypertension; Diabetes mellitus; tw2 - Immunization history:: Client reports having NOT received the Covid vaccine. - Social history:: Smoking status: Patient denies any tobacco usage or history of. ROS: 17:15 Constitutional: Negative for fever, chills, and weight loss, Cardiovascular: Negative jmm for chest pain, palpitations, and edema. 17:15 Abdomen/GI: Negative for abdominal pain, nausea, vomiting, diarrhea, and constipation, Back: Negative for injury and pain, Skin: Negative for injury, rash, and discoloration, Neuro: Negative for headache, weakness, numbness, tingling, and seizure, Psych: Negative for depression, anxiety, suicide ideation, homicidal ideation, and hallucinations, Allergy/Immunology: Negative for hives, rash, and allergies. 17:15 Respiratory: Positive for cough. 17:15 All other systems are negative. Exam: 17:15 Constitutional: This is a well developed, well nourished patient who is awake, alert, jmm and in no acute distress. Head/Face: atraumatic. Eyes: EOMI, no conjunctival erythema appreciated ENT: Moist Mucus Membranes Neck: Trachea midline, Supple Chest/axilla: Normal chest wall appearance and motion. Cardiovascular: Regular rate and rhythm. No edema appreciated Respiratory: Normal respirations, no respiratory distress appreciated Abdomen/GI: Non distended, soft Back: Normal ROM Skin: General appearance color normal MS/ Extremity: Moves all extremities, no obvious deformities appreciated, no edema noted to the lower extremities Neuro: Awake and alert, normal gait Psych: Behavior is normal, Mood is normal, Patient is cooperative and pleasant Vital Signs: 16:26 BP 158 / 91; Pulse 93; Resp 19; Temp 99.6; Pulse Ox 97% on R/A; Pain 0/10; tw2 16:41 BP 113 / 82; Pulse 84; Resp 18; Pulse Ox 96% on R/A; ld1 16:26 pt states "i was just outside a while" tw2 MDM: 16:36 Patient medically screened. [facility] 17:46 Data reviewed: vital signs, nurses notes. Counseling: I had a detailed discussion with [facility] the patient and/or guardian regarding: the historical points, exam findings, and any diagnostic results supporting the discharge/admit diagnosis, the need for outpatient follow up, to return to the emergency department if symptoms worsen or persist or if there are any questions or concerns that arise at home. Administered Medications: 17:07 Drug: Casirivimab-Imdevimab Dose Pack 120 mg/mL-120 mg/mL (EUA) 1 application Route: ld1 IV; Rate: calculated rate; Site: right antecubital; 18:13 Follow up: Response: No adverse reaction; IV Status: Completed infusion; IV Intake: ld1 250ml Disposition: 23:47 Co-signature as Attending Physician, Jassi Lombardi MD I agree with the assessment and kdr plan of care. Disposition Summary: 06/26/21 17:47 Discharge Ordered Location: Home [facility] Condition: Stable [facility] Diagnosis - Coronavirus infection, unspecified [facility] Followup: [facility] - With: Private Physician - When: 2 - 3 days - Reason: Recheck today's complaints, Continuance of care, Re-evaluation by your physician Discharge Instructions: - Discharge Summary Sheet [facility] - COVID-19 [facility] Forms: - Medication Reconciliation Form [facility] - Thank You Letter [facility] - Antibiotic Education [facility] - Prescription Opioid Use [facility] Signatures: Jassi Lombardi MD MD kdr Mickail, Joel, PA PA jmm Wise, Tara, RN RN tw2 Shawnee Camacho, RN RN ld1
[2021-06-26 18:35] VITALS: TEMP 99.6
[2021-06-26 18:36] VITALS: BP 113/82; O2SAT 96
== END 2021-06-26 18:23 | disposition home or self-care (01) ==
LOC: ER 16:18
DX: U07.1 COVID-19 (principal); I10 Essential (primary) hypertension; E11.9 Type 2 diabetes mellitus without complications
CPT/HCPCS: 96365; 99283; J7050

== ENCOUNTER 2024-08-10 06:24 | Day surgery (SDC) | payer BC, OTHER ==
[2024-08-08 16:28] LABS: Absolute Basophils 0.1 K/uL (0-0.5); Absolute Eosinophils 0.3 K/uL (0-0.5); Absolute Lymphocytes (CBC) 2.2 K/uL (0.7-4.9); Absolute Monocytes 0.6 K/uL (0.1-1.3); Absolute Neutrophil 6.7 K/uL (1.8-8.0); Basophils % 0.8 % (0-1.3); Hematocrit 42.5 % (39.6-49.0); Hemoglobin 14.8 g/dL (13.6-17.9); Lymphocytes % 22.1 % (15.3-44.8); MCH 30.4 pg (27.0-35.0); MCHC 34.7 g/dL (32.0-36.0); MCV 87.5 fL (80-100); MPV 7.5 fL (7.6-11.3); Monocytes % 6.2 % (3.3-12.3); Neutrophils % 67.9 % (41.7-73.7); Nucleated Red Blood Cells % 0.2 % (0-0); Platelets 238 thou/uL (152-406); RBC Red Blood Cell Count 4.86 M/uL (4.33-5.43); Red Cell Distribution Width 14.3 % (12.1-15.2)
[2024-08-08 16:42] LABS: Anion Gap 5.8 mEq/L (5.0-15.0); Potassium 3.8 mEq/L (3.5-5.1)
--- NOTE | 2024-08-09 10:06 | EKG ---
Test Date: 2024-08-08 Test Time: 17:11:49 Piece Dyer: ASHLEY MEASUREMENT RESULTS: Intervals: Rate: 57 OR: 164 QRSD: 108 QT: 448 QTc: 436 [place]: P: 50 OR: 164 QRS: 25 T: 54 INTERPRETIVE STATEMENTS: Sinus bradycardia Possible Lateral infarct, age undetermined Abnormal ECG Compared to ECG 12/13/2019 18:24:22 Myocardial infarct finding now present Sinus rhythm no longer present Sinus arrhythmia no longer present ST (T wave) deviation no longer present Prolonged QT interval no longer present Electronically Signed On 08-09-24 10:06:20 MICROGRINDER OPERATOR by Negro Elliott
[2024-08-10] MEDS ORDERED: NA CHLORIDE 0.9% 1,000 ML ONE (06:43)
[2024-08-10] MEDS ORDERED: propofoL 200 MG/20 ML VIAL IV ONE (07:11)
[2024-08-10] MEDS ORDERED: LIDOCAINE 1% MPF 5 ML VIAL ONE (07:11)
[2024-08-10 08:56] VITALS: TEMP 97.1
[2024-08-10 08:58] VITALS: BP 124/72; O2SAT 98
== END 2024-08-10 08:50 | disposition home or self-care (01) ==
LOC: OR 06:24
PROVIDERS: ATTEND Surgery
PROC: 0DBK8ZX Excision of Ascending Colon, Via Natural or Artificial Opening Endoscopic, Diagnostic (ICD-10-PCS; principal; 2024-08-10 07:41)
DX: Z12.11 Encounter for screening for malignant neoplasm of colon (principal); K64.4 Residual hemorrhoidal skin tags; K64.8 Other hemorrhoids; D12.2 Benign neoplasm of ascending colon
CPT/HCPCS: 93005; 85025; 80048; 36415; 82947; 88305; 45384; J2704; J2003; J7030

== ENCOUNTER 2024-08-19 15:31 | Emergency (ER) | payer BC ==
[2024-08-19] MEDS ORDERED: NA CHLORIDE 0.9% 100 ML ONE (15:58)
[2024-08-19] MEDS ORDERED: PIPERACIL/TAZO 3.375 GM VIAL IV ONE (15:59)
[2024-08-19 16:40] LABS: Absolute Eosinophils 0.1 K/uL (0-0.5); Absolute Lymphocytes (CBC) 1.6 K/uL (0.7-4.9); Absolute Monocytes 0.8 K/uL (0.1-1.3); Absolute Neutrophil 5.1 K/uL (1.8-8.0); Basophils % 0.6 % (0-1.3); Eosinophils % 1.7 % (0-4.4); Hemoglobin 14.8 g/dL (13.6-17.9); Lymphocytes % 20.7 % (15.3-44.8); MCH 29.5 pg (27.0-35.0); MCHC 33.7 g/dL (32.0-36.0); MCV 87.4 fL (80-100); MPV 7.7 fL (7.6-11.3); Monocytes % 10.1 % (3.3-12.3); Neutrophils % 66.9 % (41.7-73.7); Platelets 248 thou/uL (152-406); RBC Red Blood Cell Count 5.03 M/uL (4.33-5.43); Red Cell Distribution Width 13.8 % (12.1-15.2)
[2024-08-19 16:52] LABS: Albumin 3.1 g/dL (3.4-5.0); Albumin/Globulin Ratio 0.7 (1.1-1.8); Anion Gap 10.8 mEq/L (5.0-15.0); Bilirubin Total 0.4 mg/dL (0.2-1.0); Globulin 4.3 g/dL (2.3-3.5); Potassium 2.8 mEq/L (3.5-5.1); Protein, Total 7.4 g/dL (6.4-8.2)
--- NOTE | 2024-08-19 17:04 | ER ---
Nurse's Notes [facility] Name: Yung Camara Age: 54 yrs Sex: Male : 1970 Arrival Date: 08/19/2024 Time: 15:31 Bed 4 Private MD: Diagnosis: Multidrug-resistant E. coli UTI Presentation: 08/19 15:46 Chief complaint: Sent by Dr. Beaver for ESBL e. coli in urine culture 08/15. Pt reports hb dysuria and chills x 1 week. On Cipro day 5. Coronavirus screen: At this time, the client does not indicate any symptoms associated with coronavirus-19. Ebola Screen: No symptoms or risks identified at this time. Initial Sepsis Screen: Does the patient meet any 2 criteria? No. Patient's initial sepsis screen is negative. Does the patient have a suspected source of infection? No. Patient's initial sepsis screen is negative. Risk Assessment: Do you want to hurt yourself or someone else? Patient reports no desire to harm self or others. Onset of symptoms was August 14, 2024. 15:46 Method Of Arrival: Ambulatory 15:46 Acuity: ANNALEE 3 hb Triage Assessment: 15:52 General: Appears in no apparent distress. Behavior is calm, cooperative. Pain: Denies hb pain. EENT: No signs and/or symptoms were reported regarding the EENT system. Neuro: Level of Consciousness is awake, alert, obeys commands, Oriented to person, place, time, situation. Cardiovascular: Patient's skin is warm and dry. Respiratory: Respiratory effort is even, unlabored, Respiratory pattern is regular, symmetrical. GI: No signs and/or symptoms were reported involving the gastrointestinal system. : Reports dysuria. Derm: Skin is pink, warm \T\ dry. Musculoskeletal: No signs and/or symptoms reported regarding the musculoskeletal system. Historical: - Allergies: 15:48 No Known Allergies; hb - Home Meds: 15:48 Mounjaro subcutaneous [Active]; telmisartan oral [Active]; rosuvastatin oral [Active]; hb Xigduo XR oral [Active]; - PMHx: 15:48 diabetes mellitus; GALLSTONES; Hypertension; hb - PSHx: 15:48 None; hb - Immunization history:: Adult Immunizations up to date. - Infectious Disease History:: Denies. - Social history:: Smoking status: Patient denies any tobacco usage or history of. Screenin:54 [facility] ED Fall Risk Assessment (Adult) History of falling in the last 3 months, hb including since admission No falls in past 3 months (0 pts) Confusion or Disorientation No (0 pts) Intoxicated or Sedated No (0 pts) Impaired Gait No (0 pts) Mobility Assist Device Used No (0 pt) Altered Elimination No (0 pt) Score/Fall Risk Level 0 - 2 = Low Risk Oriented to surroundings, Maintained a safe environment, Educated pt \T\ family on fall prevention, incl call for assistance when getting out of bed. Abuse screen: Denies threats or abuse. Denies injuries from another. Nutritional screening: No deficits noted. Tuberculosis screening: No symptoms or risk factors identified. Assessment: 15:54 General: See triage assessment . hb 17:24 Reassessment: Patient and/or family updated on plan of care and expected duration. Pain tm6 level reassessed. Patient is alert, oriented x 3, equal unlabored respirations, skin warm/dry/pink. Vital Signs: 15:46 BP 131 / 88; Pulse 85; Resp 16; Temp 97.7(O); Pulse Ox 97% on R/A; Weight 122.47 kg; hb Height 5 ft. 9 in. ; Pain 0/10; 17:23 BP 122 / 87; Pulse 77; Resp 18; Temp 97.7; Pulse Ox 95% on R/A; MAP 97 mmHg; Pain 0/10; tm6 15:46 Body Mass Index 39.87 (122.47 kg, 175.26 cm) hb 15:46 Pain Scale: Adult hb 17:23 Pain Scale: Adult tm6 ED Course: 15:36 Patient arrived in ED. ra3 15:36 Oscar Darnell MD is Attending Physician. sp3 15:48 Triage completed. hb 15:52 Arm band placed on. hb 15:54 Patient has correct armband on for positive identification. Provided Education on: use hb of call light . 15:54 No provider procedures requiring assistance completed. hb 15:55 Deloris Rothman, RN is Primary Nurse. hb 15:55 First set of blood cultures drawn by me. hb 16:14 Initial lab(s) drawn, by me, sent to lab. Second set of blood cultures drawn. hb 16:21 Blood Culture* Sent. hb 16:21 CBC with Diff Sent. hb 16:21 CMP Sent. hb 16:21 Inserted saline lock: 20 gauge in right antecubital area, using aseptic technique. hb Blood collected. Flushed with 10 mL NS. 17:24 IV discontinued, intact, bleeding controlled, No redness/swelling at site. Pressure tm6 dressing applied. Administered Medications: 16:21 Drug: Piperacillin-Tazobactam IVPB 3.375 grams IVPB once over 60 mins; (mix in NS 100 hb mL) Route: IVPB; Infused Over: 60 mins; Site: right antecubital; 17:24 Follow up: Response: No adverse reaction; IV Status: Completed infusion; IV Intake: tm6 100ml 17:12 Drug: Potassium PO Effervescent Tablet 50 mEq PO once; dissolve in 4 ounces of water or tm6 juice Route: PO; 17:24 Follow up: Response: No adverse reaction tm6 Medication: 15:54 VIS not applicable for this client. hb Intake: 17:24 IV: 100ml; Total: 100ml. tm6 Outcome: 17:03 Discharge ordered by MD. nielsen 17:24 Discharged to home ambulatory, with family, tm6 17:24 Condition: stable 17:24 Discharge instructions given to patient, family, Instructed on discharge instructions, follow up and referral plans. medication usage, Demonstrated understanding of instructions, follow-up care, medications, Prescriptions given X 1, 17:24 Patient left the ED. tm6 Signatures: Deloris Rothman RN RN Oscar Darnell MD MD sp3 Porfirio Patterson RN RN tm6 Betty Curry 3
--- NOTE | 2024-08-19 17:04 | EDPHYS ---
Physician Documentation [facility] Name: Yung Camara Age: 54 yrs Sex: Male : 1970 Arrival Date: 08/19/2024 Time: 15:31 Bed 4 Private MD: ED Physician Oscar Darnell HPI: 08/19 15:58 This 54 yrs old Male presents to ER via Ambulatory with complaints of Abnormal sp3 Lab Results - sent by pcp. 15:58 54-year-old male with history of diabetes and gallstones and hypertension now presents sp3 to the ED with chief complaint resistant UTI. Patient is being treated outpatient for UTI and was on ciprofloxacin when culture results came back resistant. Patient has culture results and sensitivities with him. Bacteria is E. coli and is sensitive to both nitrofurantoin and Augmentin. PCP sent him here for "IV antibiotics". Patient has no significant pain or symptoms other than mild dysuria. Review of systems negative for headache, fever, chest pain, shortness of breath, abdominal pain, vomiting, diarrhea, rash, visualized hematuria, or any other signs or symptoms on ROS at this time.. Historical: - Allergies: 15:48 No Known Allergies; hb - Home Meds: 15:48 Mounjaro subcutaneous [Active]; telmisartan oral [Active]; rosuvastatin oral [Active]; hb Xigduo XR oral [Active]; - PMHx: 15:48 diabetes mellitus; GALLSTONES; Hypertension; hb - PSHx: 15:48 None; hb - Immunization history:: Adult Immunizations up to date. - Infectious Disease History:: Denies. - Social history:: Smoking status: Patient denies any tobacco usage or history of. ROS: 15:59 Constitutional: Negative for fever, chills, and weight loss, Eyes: Negative for injury, sp3 pain, redness, and discharge, ENT: Negative for injury, pain, and discharge, Neck: Negative for injury, pain, and swelling, Cardiovascular: Negative for chest pain, palpitations, and edema, Respiratory: Negative for shortness of breath, cough, wheezing, and pleuritic chest pain, Abdomen/GI: Negative for abdominal pain, nausea, vomiting, diarrhea, and constipation, Back: Negative for injury and pain, MS/Extremity: Negative for injury and deformity, Skin: Negative for injury, rash, and discoloration, Neuro: Negative for headache, weakness, numbness, tingling, and seizure, Psych: Negative for depression, anxiety, suicide ideation, homicidal ideation, and hallucinations, Allergy/Immunology: Negative for hives, rash, and allergies, Endocrine: Negative for neck swelling, polydipsia, polyuria, polyphagia, and marked weight changes, Hematologic/Lymphatic: Negative for swollen nodes, abnormal bleeding, and unusual bruising, 15:59 All other systems are negative, Exam: 16:00 Constitutional: This is a well developed, well nourished patient who is awake, alert, sp3 and in no acute distress. Head/Face: Normocephalic, atraumatic. Eyes: Pupils equal round and reactive to light, extra-ocular motions intact. Lids and lashes normal. Conjunctiva and sclera are non-icteric and not injected. Cornea within normal limits. Periorbital areas with no swelling, redness, or edema. Neck: Trachea midline, no thyromegaly or masses palpated, and no cervical lymphadenopathy. Supple, full range of motion without nuchal rigidity, or vertebral point tenderness. No Meningismus. Chest/axilla: Normal chest wall appearance and motion. Nontender with no deformity. No lesions are appreciated. Cardiovascular: Regular rate and rhythm with a normal S1 and S2. No gallops, murmurs, or rubs. Normal PMI, no JVD. No pulse deficits. Respiratory: Lungs have equal breath sounds bilaterally, clear to auscultation and percussion. No rales, rhonchi or wheezes noted. No increased work of breathing, no retractions or nasal flaring. Abdomen/GI: Soft, non-tender, with normal bowel sounds. No distension or tympany. No guarding or rebound. No evidence of tenderness throughout. Back: No spinal tenderness. No costovertebral tenderness. Full range of motion. Skin: Warm, dry with normal turgor. Normal color with no rashes, no lesions, and no evidence of cellulitis. Vital Signs: 15:46 BP 131 / 88; Pulse 85; Resp 16; Temp 97.7(O); Pulse Ox 97% on R/A; Weight 122.47 kg; hb Height 5 ft. 9 in. ; Pain 0/10; 17:23 BP 122 / 87; Pulse 77; Resp 18; Temp 97.7; Pulse Ox 95% on R/A; MAP 97 mmHg; Pain 0/10; tm6 15:46 Body Mass Index 39.87 (122.47 kg, 175.26 cm) hb 15:46 Pain Scale: Adult hb 17:23 Pain Scale: Adult tm6 MDM: 15:40 Medical Screening Exam initiated sp3 16:01 Data reviewed: vital signs, nurses notes, lab test result(s). ED course: 54-year-old sp3 male with resistant UTI sent by PCP for IV antibiotics. Will administer Zosyn 1 dose and send patient home on p.o. nitrofurantoin. Blood culture and routine labs pending. If negative we will safely discharge home. Differential diagnosis includes UTI versus pyelonephritis.. 17:02 ED course: Potassium being replaced. Remainder of labs within normal limits and vital sp3 signs are normal. We will safely discharge patient home at this time.. 12 15:49 Order name: CBC with Diff; Complete Time: 16:58 sp3 08/19 15:49 Order name: CMP; Complete Time: 16:58 sp3 08/19 15:49 Order name: Blood Culture* sp3 12 15:49 Order name: IV Saline Lock; Complete Time: 16:21 sp3 08/19 15:49 Order name: Labs collected and sent; Complete Time: 16:21 sp3 Administered Medications: 16:21 Drug: Piperacillin-Tazobactam IVPB 3.375 grams IVPB once over 60 mins; (mix in NS 100 hb mL) Route: IVPB; Infused Over: 60 mins; Site: right antecubital; 17:24 Follow up: Response: No adverse reaction; IV Status: Completed infusion; IV Intake: tm6 100ml 17:12 Drug: Potassium PO Effervescent Tablet 50 mEq PO once; dissolve in 4 ounces of water or tm6 juice Route: PO; 17:24 Follow up: Response: No adverse reaction tm6 Disposition Summary: 08/19/24 17:03 Discharge Ordered Notes: Location: Home sp3 Condition: Stable sp3 Diagnosis - Multidrug-resistant E. coli UTI sp3 Followup: sp3 - With: Private Physician - When: Upon discharge from the Emergency Department - Reason: Continuance of care Discharge Instructions: - Discharge Summary Sheet sp3 - Urinary Tract Infection, Adult sp3 Forms: - Medication Reconciliation Form sp3 - Antibiotic Education sp3 - Prescription Opioid Use sp3 - Patient Portal Instructions sp3 - Leadership Thank You Letter sp3 Prescriptions: - Macrobid 100 mg Oral Capsule - take 1 capsule ORAL route every 12 hours for 14 days; 28 capsule; Refills: 0, sp3 Product Selection Permitted Signatures: Dispatcher [employer] Deloris Black RN RN Oscar Darnell MD MD sp3 Porfirio Patterson RN RN tm6
[2024-08-19] MEDS ORDERED: POTASSIUM 25 MEQ EFFERV TAB ONE (17:06)
[2024-08-19 20:05] VITALS: TEMP 97.7
[2024-08-19 20:11] VITALS: BP 122/87; O2SAT 95
== END 2024-08-19 17:24 | disposition home or self-care (01) ==
LOC: ER 15:31
DX: N39.0 Urinary tract infection, site not specified (principal); B96.20 Unspecified Escherichia coli [E. coli] as the cause of diseases classified elsewhere; Z16.39 Resistance to other specified antimicrobial drug; E11.9 Type 2 diabetes mellitus without complications; I10 Essential (primary) hypertension
CPT/HCPCS: 96365; 87040 ×2; 85025; 36415; 80053; 99284; J2543